=== PATIENT | male | born 1970 ===

== ENCOUNTER 2017-04-22 11:18 | Emergency (ER) | payer BC ==
[2017-04-22 12:14] VITALS: RESP 20; TEMP 96.7; O2SAT 97
--- NOTE | 2017-04-22 12:33 | ED PDOC ---
HPI: Wound Care - HPI Time Seen by Provider: 04/22/17 12:15 Chief Complaint (Nursing): Abnormal Skin Integrity Chief Complaint (Provider): Abscess to right axilla History Per: Patient Exam Limitations: no limitations Onset/Duration Of Symptoms: Days (x 1 week) Current Symptoms Are (Timing): Still Present Quality Of Symptoms: Swollen, Draining Additional Complaint(s): Felipe is a 46 y/o male who presents to the ED for evaluation of enlarging abscess to the right axilla that has been ongoing for the past week. He notes it started as a small pimple which has progressively enlarged. The wound opened spontaneously 3 days ago and has been draining a bloody and purulent material. Patient reports he has been changing the dressing every day, and applying warm compresses. Family states the swelling and erythema has improved. Patient saw PMD in [place] yesterday who referred him to the ED to have it opened and drained and for antibiotics. Took Ibuprofen for pain without improvement. No fever or chills. Tetanus is not up to date. PMD: Non-[facility] provider Past Medical History Reviewed: Historical Data, Nursing Documentation, Vital Signs Vital Signs: Last Vital Signs Temp 96.7 F L 04/22/17 12:11 Pulse 82 04/22/17 12:11 Resp 20 04/22/17 12:11 BP 194/79 H 04/22/17 12:11 Pulse Ox 97 04/22/17 12:11 - Medical History PMH: HTN - Family History Family History: States: Hypertension - Social History Current smoker - smoking cessation education provided: No Alcohol: None Drugs: Denies - Immunization History Hx Tetanus Toxoid Vaccination: No Hx Influenza Vaccination: No Hx Pneumococcal Vaccination: No - Home Medications Home Medications: Ambulatory Orders Medication Instructions Recorded Ibuprofen [Motrin Tab] 600 mg PO Q8 PRN #60 tab 04/01/17 Lidocaine 5% [Lidoderm] 1 ea TD DAILY PRN #30 patch 04/01/17 Prednisone 50 mg PO DAILY #5 tablet 04/01/17 hydroCHLOROthiazide [Hydrodiuril] 25 mg PO DAILY #30 tab 04/01/17 traMADol [Ultram] 50 mg PO TID PRN #15 tab 04/01/17 Cephalexin [Keflex] 500 mg PO QID 7 Days #28 capsule 04/22/17 Sulfamethoxazole/Trimethoprim 1 tab PO BID 7 Days #14 tab 04/22/17 [Bactrim DS 800 mg-160 mg] - Allergies Allergies/Adverse Reactions: Allergies Allergy/AdvReac Type Severity Reaction Status Date / Time No Known Allergies Allergy Verified 04/01/17 18:52 Review of Systems ROS Statement: Except As Marked, All Systems Reviewed And Found Negative Constitutional: Negative for: Fever, Chills Skin: Positive for: Other (Abscess, + Drainage) Physical Exam - Reviewed Nursing Documentation Reviewed: Yes Vital Signs Reviewed: Yes - Physical Exam Appears: Positive for: Well, Non-toxic, No Acute Distress Head Exam: Positive for: ATRAUMATIC, NORMAL INSPECTION, NORMOCEPHALIC Skin: Positive for: Warm, Dry (with 3 x 3 cm area of erythema, with central area of fluctuance that is open and draining, mild surrounding induration) Neurologic/Psych: Positive for: Alert, Oriented - ECG O2 Sat by Pulse Oximetry: 97 (RA) Pulse Ox Interpretation: Normal Procedure: Wound Repair - Anesthetic Technique Local/Regional Anesthetic:: Lidocaine 1% Medical Decision Making Medical Decision Making: Clinical Impression: Abscess Time: 12:29 Initial Plan: --Tdap 0.5 ml IM --Tylenol 975 mg PO --Bactrim DS 1 tab PO --Keflex 500 mg PO --Lidocaine 1% ordered for drainage procedure (see I&D note below) Wound packed with sterile dressing applied. Patient instructed to return to ER in 2 days for wound check. Area of erythema outlined, and patient advised to return sooner for any extension of erythema beyond outlined borders, development of fever, or worsening of symptoms. Will d/c with Bactrim and Keflex. Counseling was provided and all questions were answered regarding diagnosis and need for follow up. There is agreement to discharge plan. Return if symptoms persist or worsen. Scribe Attestation: Documented by Rhea Isbell, acting as a scribe for Margret Lopez PA-C Provider Scribe Attestation: All medical record entries made by the Scribe were at my direction and personally dictated by me. I have reviewed the chart and agree that the record accurately reflects my personal performance of the history, physical exam, medical decision making, and the department course for this patient. I have also personally directed, reviewed, and agree with the discharge instructions and disposition. Disposition - Clinical Impression Clinical Impression: Abscess, Cellulitis - Patient ED Disposition Is Patient to be Admitted: No Counseled Patient/Family Regarding: Diagnosis, Need For Followup, Rx Given - Disposition Referrals: Rocky Hollis MD [Staff Provider] - Disposition: Routine/Home Disposition Time: 13:34 Condition: STABLE Additional Instructions: Take prescribed antibioitics, and continue to apply warm compresses to the area. Return to the ED in 2 days for wound check and packing removal, or sooner should symptoms worsen, fever develop, or erythema extends beyond outlined border. Prescriptions: Cephalexin [Keflex] 500 mg PO QID 7 Days #28 capsule Sulfamethoxazole/Trimethoprim [Bactrim DS 800 mg-160 mg] 1 tab PO BID 7 Days # 14 tab Instructions: Cellulitis (ED), Abscess (ED) Forms: [employer] (Bhutanese), [facility] ED School/Work Excuse Print Language: THAI - Incision & Drainage Of Abscess Anesthesia: Lidocaine 1% Procedure: Incised W/Scalpel Blade#: (11), Drained Pus (large volume of drainage ), Irrigated Cavity W/Saline, Packed W/Gauze
[2017-04-22] MEDS ORDERED: Tmp-Smz 800 mg-160 mg DS Tab ONE (12:40)
[2017-04-22] MEDS: Tmp-Smz 800 mg-160 mg DS Tab PO STA (12:48)
[2017-04-22] MEDS: Lidocaine 1% Inj (20ml) IJ STA (12:54)
[2017-04-22 14:09] VITALS: BP 125/77; PULSE 74
== END 2017-04-22 14:26 | disposition home or self-care (01) ==
LOC: H.ER 11:18
DX: L02.411 Cutaneous abscess of right axilla (principal); I10 Essential (primary) hypertension

== ENCOUNTER 2017-04-26 15:41 | Emergency (ER) | payer BC ==
[2017-04-26 16:03] VITALS: BP 160/90; PULSE 76; RESP 18; TEMP 97.6; O2SAT 96
--- NOTE | 2017-04-26 16:27 | ED PDOC ---
HPI: General Adult Time Seen by Provider: 04/26/17 16:21 Chief Complaint (Nursing): Abnormal Skin Integrity Chief Complaint (Provider): Abnormal Skin Integrity History Per: Patient Additional Complaint(s): Felipe is a 46 year old male who presents to the Emergency Department for cyst drainage follow up. Cyst was drained 2 days ago. Denies fever. PMD: Provider TBD Past Medical History Reviewed: Historical Data, Nursing Documentation, Vital Signs Vital Signs: Last Vital Signs Temp 97.6 F 04/26/17 16:00 Pulse 76 04/26/17 16:00 Resp 18 04/26/17 16:00 BP 160/90 H 04/26/17 16:00 Pulse Ox 96 04/26/17 16:35 - Medical History PMH: HTN - Family History Family History: States: Hypertension - Immunization History Hx Tetanus Toxoid Vaccination: No Hx Influenza Vaccination: No Hx Pneumococcal Vaccination: No - Home Medications Home Medications: Ambulatory Orders Medication Instructions Recorded Ibuprofen [Motrin Tab] 600 mg PO Q8 PRN #60 tab 04/01/17 Lidocaine 5% [Lidoderm] 1 ea TD DAILY PRN #30 patch 04/01/17 Prednisone 50 mg PO DAILY #5 tablet 04/01/17 hydroCHLOROthiazide [Hydrodiuril] 25 mg PO DAILY #30 tab 04/01/17 traMADol [Ultram] 50 mg PO TID PRN #15 tab 04/01/17 Cephalexin [Keflex] 500 mg PO QID 7 Days #28 capsule 04/22/17 Sulfamethoxazole/Trimethoprim 1 tab PO BID 7 Days #14 tab 04/22/17 [Bactrim DS 800 mg-160 mg] - Allergies Allergies/Adverse Reactions: Allergies Allergy/AdvReac Type Severity Reaction Status Date / Time No Known Allergies Allergy Verified 04/01/17 18:52 - ECG O2 Sat by Pulse Oximetry: 96 (RA) Pulse Ox Interpretation: Normal Medical Decision Making Medical Decision Making: Time: 16:11 Procedure: Pack Abscess Location: Erythematous Right Flank Size: 4 cm localized area of induration - Abscess repacked with gauge Time: 16:33 Upon provider evaluation patient is medically stable, and requires no further treatment in the ED at this time. Patient will be discharged. Counseling was provided and all questions were answered regarding diagnosis and need for follow up with PCP. There is agreement to discharge plan. Return if symptoms persist or worsen. Scribe Attestation: Documented by John Alvares, acting as a scribe for Luis Luz PA-C Provider Scribe Attestation: All medical record entries made by the Scribe were at my direction and personally dictated by me. I have reviewed the chart and agree that the record accurately reflects my personal performance of the history, physical exam, medical decision making, and the department course for this patient. I have also personally directed, reviewed, and agree with the discharge instructions and disposition. Disposition - Clinical Impression Clinical Impression: Abscess - Patient ED Disposition Is Patient to be Admitted: No - Disposition Referrals: Rocky Hollsi MD [Staff Provider] - Disposition: Routine/Home Disposition Time: 16:33 Condition: FAIR Instructions: Abscess (ED) Forms: [employer] (Cameroonian), [facility] ED School/Work Excuse
== END 2017-04-26 16:52 | disposition home or self-care (01) ==
LOC: SUPCPDRO 15:41 → H.ER 15:41
DX: Z48.00 Encounter for change or removal of nonsurgical wound dressing (principal); I10 Essential (primary) hypertension